=== PATIENT | male | born 1990 | race Caucasian/White ===

== ENCOUNTER 2016-11-18 15:39 | Inpatient (IN) | payer OTHER ==
[2016-11-18] MEDS ORDERED: ONDANSETRON 4 MG/2 ML VIAL IVP ONE (16:01)
[2016-11-18] MEDS ORDERED: NS 1,000 ML IV ONE ×3 (16:01→18:41)
[2016-11-18] MEDS ORDERED: PANTOPRAZOLE SODIUM 80 MG in NS 100 ML IV ONE ×2 (16:02→18:50)
--- NOTE | 2016-11-18 16:02 | CPEKG ---
Heart Rate: 109 RR Interval: 550 P-R Interval: 144 QRSD Interval: 86 QT Interval: 308 QTC Interval: 415 P Augusta: 75 QRS Augusta: 56 T Wave Augusta: 40 EKG Severity - OTHERWISE NORMAL ECG - EKG Impression: SINUS TACHYCARDIA Electronically Signed By: Harish Joshi 18-Nov-2016 16:15:17
[2016-11-18 16:07] LABS: % IMMATURE GRANULYOCYTES 0.7 % (0.0-1.1); ABSOLUTE IMMATURE GRANULOCYTES 0.13 10^3/uL (0.00-0.10); ADD DIFF? NO; ADD MORPH? NO; ADD SCAN? NO; ATYPICAL LYMPHOCYTE FLAG 0 (0-99); FRAGMENT RBC FLAG 0 (0-99); HEMATOCRIT 33.2 % (40.0-51.0); HEMOGLOBIN 11.5 g/dL (13.7-17.5); LEFT SHIFT FLG 0 (0-99); LIPEMIA HEMOLYSIS FLAG 90 (0-99); MEAN CELL HEMOGLOBIN 31.9 pg (27.9-34.1); MEAN CELL HEMOGLOBIN CONCENTR. 34.6 g/dL (32.4-36.7); MEAN PLATELET VOLUME 13.5 fL (8.7-11.7); PLATELET CLUMPS FLAG 0 (0-99); PLATELET COUNT 274 10^3/uL (150-400); RED BLOOD CELL COUNT 3.61 10^6/uL (4.40-6.38); RED CELL DISTRIBUTION WIDTH 12.3 % (11.5-15.2)
[2016-11-18 16:18] LABS: ANION GAP 13 mEq/L (8-16); CALCIUM 9.1 mg/dL (8.5-10.4); CARBON DIOXIDE 21 mEq/l (22-31); CHLORIDE 105 mEq/L (97-110); GLOMERULAR FILTRATION RATE > 60; GLUCOSE 116 mg/dL (70-100); POTASSIUM 4.1 mEq/L (3.5-5.2); SODIUM 139 mEq/L (134-144)
--- NOTE | 2016-11-18 16:23 | EDPHY ---
General Narrative: CHIEF COMPLAINT: Loss of consciousness, vomiting diarrhea, head injury HISTORY OF PRESENT ILLNESS: Patient reports that he has had nausea vomiting diarrhea since yesterday. Several episodes of vomiting last night with 1 episode of diarrhea. Today there was no vomiting but he did have multiple episodes of diarrhea. No bloody stools or emesis. Red vomitus once after a red watermelon gatorade. Patient feels that he has food poisoning. He was having an episode of diarrhea today when he felt very lightheaded and near syncopal. He stood up to go call for help and lost consciousness. He fell back striking his head on what he thinks was his bathtub. He complains of feeling lightheaded, thirsty, and a mild headache. He has no neck pain or chest pain. No back pain. No abdominal pain. No injuries to the arms or legs. He did sustain a laceration which was bleeding moderately. He arrives by EMS and is seen soon after arrival. REVIEW OF SYSTEMS: Ten systems reviewed and are negative unless otherwise noted in the HPI PCP: Jas SPECIALISTS: None PAST MEDICAL HISTORY: Orthopedic injuries, back pain, ankle malignancy, peptic ulcer, GERD PAST SURGICAL HISTORY: Orthopedic surgeries, lipoma excision, ablation of ankle mass SOCIAL HISTORY: Nonsmoker. Occasional alcohol. Occasional marijuana. 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 Left posterior scalp laceration just below the occiput. 4 cm. No involvement of the galea. No foreign body Eyes: Pupils equal and round, no conjunctival pallor or injection. EOMs intact ENT, Mouth: Mucous membranes dry. Airway patent. Neck: Normal inspection, supple, non-tender. No crepitus, step-off or deformity. Painless range of motion all planes. No rigidity or meningismus Respiratory: Lungs are clear to auscultation. No wheezing, rhonchi or crackles Cardiovascular: Tachycardic rate. Regular rhythm. Gastrointestinal: Abdomen is soft and nontender Back: non-tender, no bony abnormalities. No crepitus step-off or deformity Neurological: GCS 15. A&O, nonfocal, strength is symmetric. Skin: Warm and dry, no rash. Scalp laceration as above. Extremities: Nontender, no pedal edema Psychiatric: Mood and affect normal DIFFERENTIAL DIAGNOSES: Including but not limited to syncope, closed head injury, laceration, dehydration, food-borne illness, enteritis, gastroenteritis MDM: 4:02 p.m. Nausea vomiting diarrhea with apparent clinical dehydration. Patient describes what is likely a vasovagal episode. He does have a scalp laceration and closed head injury. I have ordered CT scan of the head. I have ordered laboratory studies, IV fluid, Protonix. Scalp laceration will need staple repair. Tetanus is up-to-date. 4:35 p.m. Patient was taken to CT scan. IV fluid currently infusing. Laboratory studies pending. Thus far he does have leukocytosis and normal creatinine. 4:45 p.m. Notified by radiologist Dr. Johnson. CT scan of the head reveals no acute findings. There is some fluid in the maxillary sinus without any in the adjacent ethmoid sinus. 5:04 p.m. Patient re-evaluated. His heart rate is coming down with the 1st L IV fluid. The laceration has been irrigated. It has now been staple repaired. This was done without complication. Continue IV fluid resuscitation. At this time I have discussed the case with Dr. Joshi. He will assume care the patient. I do not feel that he is stable for discharge at this time. PROCEDURE: Laceration repair Consent: Verbal Location: Left posterior scalp Length of repair: 4 cm Complexity: Complex Layer involvement: Single Anesthesia: Local per 1% lidocaine with epinephrine. 7 mL Irrigation: Extensive Debridement: None Procedure description: Following good anesthesia, the wound was copiously irrigated. Wound bed was explored and there is no foreign body noted. No involvement of the galea. Wound borders were approximated well with good hemostasis. Tolerated well without complication. Suture/Staple material: 9 marci Wound care: Routine as discussed Suture/Staple removal: [address] Joshi Sinus tachycardia. No acute ischemia (Otoniel Gilmore) Medical Decision Makin:40 p.m. I evaluated the patient. He is well-appearing but is still tachycardic and slightly hypotensive. He states that he feels acute going to have another episode of diarrhea. Upon questioning it sounds as though his diarrhea has been dark. He states that his vomit was red but he had just drank in a red Gatorade. I performed a rectal exam which was dark in color and sent to the lab for testing. I will give the patient a 3rd L of fluid and recheck his hematocrit. 6:55 p.m. the patient's Hemoccult is positive. He remains hypotensive and tachycardic. I discussed the case with Dr. White who will admit to the ICU. I have paged gastrology and ordered type and screen. Will place a 2nd IV and start him on a Protonix drip. 7:00 p.m. I discussed the case with Dr. Quiñonez from Gastroenterology. He agrees with Protonix drip and states that as long as the stool remains black he recommends keeping the patient NPO to scope him 1st thing in the morning. He states that if he begins having red blood to call him immediately. 7:20 p.m. the patient's blood pressure is improving. He remains tachycardic and his crit is drop. (Harish Joshi) - Objective Vital Signs: Initial Vital Signs Heart Rate 99 11/18/16 16:02 Blood Pressure 124/102 H 11/18/16 16:02 O2 Delivery Mode Room Air Allergies/Adverse Reactions: No Known Allergies Allergy (Unverified 11/18/16 16:22) Home Medications: Medication Instructions Recorded Calcium Carbonate [Tums 500MG (*)] 1,000 mg PO TIDMEAL PRN 11/18/16 Herbals/Supplements -Info Only 1 ea PO DAILY 11/18/16 Omeprazole [Prilosec 20 mg] 20 mg PO DAILY PRN 11/18/16 Laboratory Results: Laboratory Results 11/19/16 07:25 11/19/16 07:25 11/19/16 11/19/16 07:25 07:25 Hgb 7.8 g/dL L g/dL (13.7-17.5) Hct 23.3 % L % (40.0-51.0) Sodium 138 mEq/L mEq/L (134-144) Potassium 4.6 mEq/L mEq/L (3.5-5.2) Chloride 110 mEq/L mEq/L (97-110) Carbon Dioxide 26 mEq/l mEq/l (22-31) Anion Gap 2 mEq/L L mEq/L (8-16) BUN 25 mg/dL H mg/dL (7-23) Creatinine 0.9 mg/dL mg/dL (0.7-1.3) Estimated GFR > 60 Glucose 88 mg/dL mg/dL (70-100) Calcium 8.4 mg/dL L mg/dL (8.5-10.4) Medications Given: Acetaminophen (Tylenol) 650 mg PO Q4HRS PRN PRN Reason: Pain, Mild/Fever, Can Take PO Stop: 05/17/17 19:28 Last Admin: 11/19/16 16:15 Dose: 650 mg Sodium Chloride (Ns) 1,000 mls @ 125 mls/hr IV CONT KENYATTA Stop: 05/17/17 21:14 Last Admin: 11/19/16 08:05 Dose: 1,000 mls Pantoprazole Sodium 80 mg/ (Sodium Chloride) 100 mls @ 10 mls/hr IV Q10H KENYATTA Stop: 05/18/17 11:29 Last Admin: 11/19/16 11:51 Dose: 100 mls Discontinued Medications Sodium Chloride (Ns) 1,000 mls @ 0 mls/hr IV EDNOW ONE; Wide Open PRN Reason: Protocol Stop: 11/18/16 16:02 Last Admin: 11/18/16 16:25 Dose: 1,000 mls Pantoprazole Sodium 80 mg/ (Sodium Chloride) 100 mls @ 200 mls/hr IV ONCE ONE Stop: 11/18/16 16:31 Last Admin: 11/18/16 17:01 Dose: 100 mls Sodium Chloride (Ns) 1,000 mls @ 0 mls/hr IV ONCE ONE PRN Reason: Wide Open Stop: 11/18/16 17:04 Last Admin: 11/18/16 17:06 Dose: 1,000 mls Sodium Chloride (Ns) 1,000 mls @ 0 mls/hr IV EDNOW ONE; Wide Open PRN Reason: Protocol Stop: 11/18/16 18:42 Last Admin: 11/18/16 18:46 Dose: 1,000 mls Pantoprazole Sodium 80 mg/ (Sodium Chloride) 100 mls @ 10 mls/hr IV Q10H ONE Stop: 11/19/16 04:49 Last Admin: 11/18/16 19:13 Dose: 100 mls Lactated Ringer's (Lr) 1,000 mls @ 0 mls/hr IV ONCE ONE PRN Reason: Per Protocol Stop: 11/19/16 09:12 Last Admin: 11/19/16 12:39 Dose: Not Given Ondansetron HCl (Zofran) 4 mg IVP EDNOW ONE Stop: 11/18/16 16:02 Last Admin: 11/18/16 16:26 Dose: 4 mg Departure - Departure Disposition: [facility] Inpatient Acute Clinical Impression: Dehydration, Upper GI bleed Syncope Qualifiers: Syncope type: vasovagal syncope Qualified Code(s): R55 - Syncope and collapse Scalp laceration Qualifiers: Encounter type: initial encounter Qualified Code(s): S01.01XA - Laceration without foreign body of scalp, initial encounter Closed head injury Qualifiers: Encounter type: initial encounter Qualified Code(s): S09.90XA - Unspecified injury of head, initial encounter Condition: Good
[2016-11-18 16:27] LABS: TROPONIN I < 0.012 ng/mL (0.000-0.034)
[2016-11-18 18:53] LABS: % IMMATURE GRANULYOCYTES 0.8 % (0.0-1.1); ABSOLUTE IMMATURE GRANULOCYTES 0.13 10^3/uL (0.00-0.10); ADD DIFF? NO; ADD MORPH? NO; ADD SCAN? NO; ATYPICAL LYMPHOCYTE FLAG 0 (0-99); FRAGMENT RBC FLAG 0 (0-99); HEMATOCRIT 27.5 % (40.0-51.0); HEMOGLOBIN 9.7 g/dL (13.7-17.5); LEFT SHIFT FLG 0 (0-99); LIPEMIA HEMOLYSIS FLAG 90 (0-99); MEAN CELL HEMOGLOBIN 32.6 pg (27.9-34.1); MEAN CELL HEMOGLOBIN CONCENTR. 35.3 g/dL (32.4-36.7); MEAN CELL VOLUME 92.3 fL (81.5-99.8); MEAN PLATELET VOLUME 13.1 fL (8.7-11.7); PLATELET CLUMPS FLAG 20 (0-99); PLATELET COUNT 197 10^3/uL (150-400); RED BLOOD CELL COUNT 2.98 10^6/uL (4.40-6.38); RED CELL DISTRIBUTION WIDTH 12.3 % (11.5-15.2)
[2016-11-18] MEDS ORDERED: ONDANSETRON 4 MG/2 ML VIAL IVP PRN (19:29)
[2016-11-18] MEDS ORDERED: ONDANSETRON DISINTEGRATING 4 MG TAB PO PRN (19:29)
[2016-11-18 21:57] LABS: ALBUMIN 3.4 g/dL (3.5-5.0); BILIRUBIN,TOTAL 0.5 mg/dL (0.1-1.4); BILIRUBIN-CONJUGATED 0.3 mg/dL (0.0-0.5); BILIRUBIN-UNCONJUGATED 0.2 mg/dL (0.0-1.1); TOTAL PROTEIN 5.9 g/dL (6.3-8.2)
--- NOTE | 2016-11-18 21:59 | GHP ---
[f rep st] HISTORY AND PHYSICAL DATE OF ADMISSION: 11/18/2016 CHIEF COMPLAINT: 1. Melena. 2. Syncope. HISTORY OF PRESENT ILLNESS: A 26-year-old male with history of a duodenal ulcer at age 13, who presented with melena and a syncopal episode. Yesterday, he was at work and was not feeling well about 4 p.m. He felt more tired than normal. His stomach felt queasy and he felt lightheaded. He had 1 episode of emesis at 4 p.m. that was coffee-ground colored. He says he went home and had 1 more episode of bloody emesis at 11 p.m. It was red, but he said he had drank red Gatorade. He felt that he might have food poisoning. Over the last couple days he has eaten his normal grocery store burrito and a roast beef sandwich. No recent travel. Today, he had an episode of diarrhea in which he felt very lightheaded and stood up. He passed out and hit the back of his head on the bathtub. He was able to call 911. His diarrhea was black. Reports taking Advil 200 mg tabs 2-3 times a week for chronic back pain. Has not really taken much in the last week. Has had increased coffee intake. REVIEW OF SYSTEMS: I completed a 10-point Review of Systems, negative except as noted in HPI. PAST MEDICAL HISTORY: 1. Duodenal ulcer at age 13. Had 2 EGDs, repeat was normal. 2. Chronic lower back pain secondary to herniated disk. 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 SOCIAL HISTORY: Lives in [place]. 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 Alcohol, drinks 1 to 2 or 3 beers a couple times a week. Does vape marijuana 3 times a week. No tobacco. FAMILY HISTORY: Paternal grandmother with breast cancer and [place]. Paternal grandfather with cancer and [place]. PHYSICAL EXAMINATION: VITAL SIGNS: Temperature 37.5, blood pressure 139/77, heart rate 104, respirations 18, 94% on room air. His orthostatic with supine 124/102. Blood pressure 84/65 with standing. Heart rate 134 earlier today. GENERAL: Lying in bed, tired appearing. HEENT: Back of head, left occipital with marci. Dry mucous membranes. CV: Tachy but regular. No murmurs, gallops, rubs. LUNGS: Clear to auscultation bilaterally. ABDOMEN: Soft, nontender, nondistended. Positive bowel sounds. : No suprapubic tenderness. MUSCULOSKELETAL: 5/5 upper and lower extremity strength. NEURO: 2 through 12 intact. LABS: The sodium 139, potassium 4.1, chloride 105, carbon dioxide 21, BUN 40, creatinine 1, glucose 116, calcium 9.1. Troponin less than 0.012. Lipase 84. Procalcitonin 62. WBC 17, H and H 11 and 33, platelets 274. Repeat hemoglobin 9.7/27. Head CT personally reviewed by me, normal CT. EKG personally reviewed by me, sinus tachycardia. ASSESSMENT/PLAN: 1. Acute lower gastrointestinal bleed: History of duodenal ulcer in the past. He has been using Advil pretty regularly. We will monitor in step-down unit with q.4 hour H and H. Dr. Quiñonez with GI has been consulted. Plan for scope in the morning unless clinically deteriorates. Currently hemodynamically stable. Start 2 large-bore IVs, intravenous proton pump inhibitor, intravenous fluids. Check gastrointestinal panel. 2. Tachycardia secondary to acute blood loss. 3. Posterior scalp laceration secondary to fall. This has been stapled. 4. Syncope secondary to acute blood loss. Vasovagal. Troponin is negative. 5. Leukocytosis likely secondary to dehydration and stress response given acute gastrointestinal bleed. Will repeat in the morning. GI panel is pending. 6. Diet: Nothing per mouth. 7. Deep vein thrombosis prophylaxis: Sequential compression devices. DISPOSITION: Patient warrants inpatient admission given acute gastrointestinal bleed requiring serial labs, intravenous Protonix, and GI consultation. Critical care time spent: 45 min evaluating patient, reviewing labs and coordinating care for ICU care. /[id number]/MODL MTDD
[2016-11-18 22:24] LABS: HEMATOCRIT 26.7 % (40.0-51.0); HEMOGLOBIN 9.2 g/dL (13.7-17.5)
[2016-11-18] MEDS: ACETAMINOPHEN 325 MG TAB PO PRN (22:59)
[2016-11-19 02:06] LABS: HEMATOCRIT 21.5 % (40.0-51.0); HEMOGLOBIN 7.5 g/dL (13.7-17.5)
[2016-11-19] MEDS: ACETAMINOPHEN 325 MG TAB PO PRN ×3 (06:16→20:20)
[2016-11-19 07:39] LABS: HEMATOCRIT 23.3 % (40.0-51.0); HEMOGLOBIN 7.8 g/dL (13.7-17.5)
[2016-11-19] MEDS: NS 1,000 ML IV SCH ×2 (08:05→18:09)
[2016-11-19 08:18] LABS: ANION GAP 2 mEq/L (8-16); CALCIUM 8.4 mg/dL (8.5-10.4); CARBON DIOXIDE 26 mEq/l (22-31); CHLORIDE 110 mEq/L (97-110); CREATININE 0.9 mg/dL (0.7-1.3); GLOMERULAR FILTRATION RATE > 60; GLUCOSE 88 mg/dL (70-100); POTASSIUM 4.6 mEq/L (3.5-5.2); SODIUM 138 mEq/L (134-144)
[2016-11-19] MEDS ORDERED: LR 1,000 ML IV ONE (09:11)
--- NOTE | 2016-11-19 09:13 | PDANEPAE ---
ANE History of Present Illness 26 yo M w possible UGIB here for EGD ANE Past Medical History - Cardiovascular History Hx Hypertension: No Hx Arrhythmias: No Hx Chest Pain: No - Pulmonary History Hx COPD: No Hx Asthma/Reactive Airway Disease: No Hx Sleep Apnea: No Sleep Apnea Screening Result - Last Documented: Negative - Endocrine History Hx Diabetes: No - GI History GERD: moderate - Chronic Pain History Chronic Pain: Yes (HNP L5-S1, S1-S2) ANE Review of Systems Review of Systems: - Exercise capacity Exercise capacity: >=4 METS ANE Patient History - Allergies Allergies/Adverse Reactions: No Known Allergies Allergy (Unverified 11/18/16 16:22) - Home Medications Home Medications: Calcium Carbonate [Tums 500MG (*)] 1,000 mg PO TIDMEAL PRN 11/18/16 [Last Taken Unknown] Herbals/Supplements -Info Only 1 ea PO DAILY 11/18/16 [Last Taken Unknown] Omeprazole [Prilosec 20 mg] 20 mg PO DAILY PRN 11/18/16 [Last Taken Unknown] - NPO status NPO Status: no food or drink >8 hours NPO Since - Liquids (Date): 11/18/16 NPO Since - Liquids (Time): 20:00 NPO Since - Solids (Date): 11/18/16 NPO Since - Solids (Time): 14:00 - Anes Hx Anes Hx: no prior problems - Smoking Hx Smoking Status: Never smoked - Alcohol Use Alcohol Use: Occasionally - Family Anes Hx Family Anes Hx: none ANE Labs/Vital Signs - Labs Result Diagrams: 11/19/16 07:25 11/19/16 07:25 - Vital Signs Blood Pressure: 127/68 Heart Rate: 90 Respiratory Rate: 18 O2 Sat (%): 98 Height: 177.8 cm Weight: 109.4 kg ANE Physical Exam - Airway Neck exam: FROM Mallampati Score: Class 2 Mouth exam: normal dental/mouth exam - Pulmonary Pulmonary: no respiratory distress, clear to auscultation - Cardiovascular Cardiovascular: regular rate and rhythym, no murmur, rub, or gallop - ASA Status ASA Status: II
[2016-11-19] MEDS ORDERED: NS 500 ML IV SCH (09:15)
[2016-11-19] MEDS ORDERED: INDOMETHACIN 50 MG SUPP PR PRN (09:15)
[2016-11-19] MEDS ORDERED: PROPOFOL/EMULSION 500 MG/50 ML BOTTLE IV ONE ×2 (09:18→09:44)
[2016-11-19] MEDS ORDERED: ONDANSETRON 4 MG/2 ML VIAL IVP PRN (09:22)
[2016-11-19] MEDS ORDERED: NALOXONE HCL 0.4 MG/ML INJ IVP PRN (09:22)
[2016-11-19] MEDS ORDERED: ACETAMINOPHEN 500 MG TAB PO PRN (09:22)
[2016-11-19] MEDS ORDERED: EPINEPHrine 1 MG/10 ML SYR IVP ONE (09:36)
--- NOTE | 2016-11-19 10:14 | GIREPORT ---
[facility] Surgical Services - Endoscopy Department Patient Name: Eric Ruiz Procedure Date: 11/19/2016 9:15 AM Patient Type: Inpatient Attending MD/ ER Physician: Leonel Quiñonez MD Procedure: Upper GI endoscopy Indications: Hematemesis Patient Profile: 26 year old male presents for evaluation of a UGI bleed. Providers: Leonel Quiñonez MD Medicines: Monitored Anesthesia Care Complications: No immediate complications. Estimated blood loss: Minimal. Description of Procedure: After obtaining informed consent, the endoscope was passed under direct vision. Throughout the procedure, the patient's blood pressure, pulse, and oxygen saturations were monitored continuous ly. The Endoscope was introduced through the mouth, and advanced to the second part of duodenum. The upper GI endoscopy was accomplished without difficulty. The patient tolerated the procedure well . Findings: The examined esophagus was normal. A small hiatal hernia was present. Just distal to the duodenal bulb, a clot was seen with minimal ulceration. Gold probe was applie d with significant oozing noted. A Resolution clip was placed with complete cessation of bleeding. Estimated Blood Loss: Estimated blood loss was minimal. Post Op Diagnosis: - Normal esophagus. - Small hiatal hernia. - UGI- suspect gastroduodenal artery bleed. S/p GoldProbe and clip with no bleeding noted. Recommendation: - Return patient to [facility] for [facility] care. - Use a proton pump inhibitor IV infusion. - Gastroduodenal artery bleed? High risk of rebleed. Continue PPI infus ion. Would keep NPO. Monitor H/H - IR notified and if any rebleeding, would consider formal consultation . - Will check blood work for H. pylori. - Thank you for allowing me to participate in the care of your patient. Attending Participation: I personally performed the entire procedure. Leonel Quiñonez MD Leonel Quiñonez MD 11/19/2016 10:14:12 AM Number of Addenda: 0 Note Initiated On: 11/19/2016 9:15 AM [email or web address]
--- NOTE | 2016-11-19 10:48 | POSTANESTH ---
Post Anesthetic Evaluation Cardiovascular Status: Normal, Stable, Similar to Pre-Op Cond Respiratory Status: Normal, Stable, Similar to Pre-op Cond. Level of Consciousness/Mental Status: Can Participate in Eval, Alert and Oriented Pain Control: Adequate, Prn Tx Ordered Nausea/Vomiting Control: Adequate, Prn Tx Ordered Complications Possibly Related to Anesthesia: None Noted
[2016-11-19] MEDS: PANTOPRAZOLE SODIUM 80 MG in NS 100 ML IV SCH ×2 (11:51→21:37)
--- NOTE | 2016-11-19 11:57 | HOSPPROG ---
Hospitalist Progress Note Assessment/Plan: GIB - EGD this am revealed likely gastroduodenal arterial bleed s/p gold probe and clip placement. High risk for rebleeding. Hgb 11.5 --> 7.8. Hemodynamically stable. -cont to trend H&H, transfuse if continues to drop, currently stable -PPI drip -GI aware -IR for consideration of embolization if rebleeding occurs Syncope - secondary to above Scalp injury due to syncope, s/p marci in ED - CT head neg Full code DVT PPXL - pharm c/i due to GIB. SCD's Dispo - cont ICU / inpt Subjective: Pt feels ok. Not much abdominal pain, N/V. No more melena since EGD this am. Denies CP, SOB or dizziness. No fevers. Objective: Vital Signs Temp Pulse Resp BP Pulse Ox 36.8 C 90 18 129/67 H 97 11/19/16 11:01 11/19/16 09:13 11/19/16 09:13 11/19/16 11:00 11/19/16 11:00 Laboratory Results 11/19/16 07:25 11/19/16 07:25 11/18/16 11/19/16 11/20/16 05:59 05:59 05:59 Intake Total 3985.9 Output Total 800 Balance 3985.9 -800 - Physical Exam Constitutional: no apparent distress Eyes: PERRL Ears, Nose, Mouth, Throat: moist mucous membranes Cardiovascular: regular rate and rhythym Respiratory: no respiratory distress, clear to auscultation Gastrointestinal: normoactive bowel sounds, other (soft, nd, minimal TTP, no r/r /g, +BS) Skin: warm Musculoskeletal: full muscle strength Neurologic: AAOx3 Psychiatric: interacting appropriately ICD10 Worksheet Patient Problems: Problems Problem Status Onset Closed head injury Acute Dehydration Acute Scalp laceration Acute Syncope Acute Upper GI bleed Acute
[2016-11-19 12:52] LABS: HEMATOCRIT 21.4 % (40.0-51.0); HEMOGLOBIN 7.4 g/dL (13.7-17.5)
--- NOTE | 2016-11-19 14:28 | PDMN ---
Medical Necessity Medical necessity: Patient meets INPT criteria per physician note and MCG M-180 GI Bleeding, Upper (high-risk endoscopic features: suspected gastroduodenal arterial bleeding per endoscopy w/clip placement; high risk for rebleed and need to follow serial H&H for poss transfusion needs (11.5/33.2 to 7.4/21.4); LOS will be > 2 midnights for IV hydration/Protonix.)
--- NOTE | 2016-11-19 16:01 | ASMTCMCOM ---
CM Note CM Note Notes: Pt was admitted with GI bleed, hypotension. S/p EGD. Hx duodenal ulcer. He is a [employer] student and has health ins through [employer] - sent copy of pt's ins info to Admissions, copy in chart. Anticipate d/c with no CM needs however will continue to follow for any change in needs. Date Signed: 11/19/2016 04:00 PM Electronically Signed By:AIXA Salas
--- NOTE | 2016-11-19 16:53 | GCON ---
[f rep st] CONSULTATION PULMONARY/CRITICAL CARE CONSULTATION DATE OF CONSULTATION: 11/19/2016 REFERRING PHYSICIAN: Edita White MD REASON FOR CONSULTATION: Evaluation and management of anemia. HISTORY OF PRESENT ILLNESS: The patient is a 26-year-old male with a history of duodenal ulcer at ag e 13, who was admitted to the hospital yesterday with melena and syncope. He has taken omeprazole in termittently for abdominal discomfort, but has not been taking it recently because he had not been coates ving any. About 4 p.m. on November 17, he began not feeling well, with increased tiredness and some nausea with lightheadedness. He had an episode of emesis, it was coffee-grounds, and then had some more coffee-ground/red emesis following that, followed by an episode of diarrhea and lightheadedness yesterday that resulted in syncope. He was brought to the emergency department, where he had some bl ack diarrhea. He was seen by Gastroenterology, who performed an endoscopy this morning and found a d uodenal ulcer with clot. Clip was placed with complete cessation of the bleeding. He was transferre d back to the ICU. He reports that he had been doing well throughout the day until just a few minute s ago, when he began to feel a little bit lightheaded. He has had no emesis or bowel movements. PAST MEDICAL HISTORY: 1. Duodenal ulcer at age 13. 2. Chronic lower back pain. MEDICATIONS: At the time of admission include omeprazole p.r.n. and Tums p.r.n. ALLERGIES: None. SOCIAL HISTORY: The patient lives in [place]. 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 He drinks 1-2 beers a couple times a week. He does not smoke. FAMILY HISTORY: Unremarkable. REVIEW OF SYSTEMS: A 10-point review of systems adds nothing to the history of present illness. PHYSICAL EXAMINATION: GENERAL: The patient is awake, alert, in no acute distress. VITAL SIGNS: Bl ood pressure is 127/60 with a heart rate of 96. He is afebrile. Oxygen saturations are 98% on room air. HEENT: Normocephalic and atraumatic. No icterus. NECK: No JVD. Trachea is midline. CHEST: Clear to auscultation. CARDIAC: Regular rate and rhythm without murmur. ABDOMEN: Soft, nontende r. Bowel sounds are present. EXTREMITIES: No clubbing, cyanosis or edema. NEURO: The patient is awake, alert and oriented. There are no gross motor or sensory deficits. LABORATORY: Chemistry group is remarkable only for a BUN of 25. A prolactin of 62. Hemoglobin is 7 .4, down from 11.5 at admission. ASSESSMENT: 1. Anemia. This is due to a gastrointestinal bleed. His hemoglobin has been trending down, but his vital signs are stable. He has no evidence of ongoing significant active bleeding. However, he nixon arently Gastroenterology feels that he is at some risk for rebleeding, in which case he would probabl y go to Interventional Radiology for an attempt to stop the bleeding. 2. Duodenal ulcer. This is likely the cause of the patient's bleeding. He has had a clip placed an d is on a proton pump inhibitor. RECOMMENDATIONS: 1. Continue q. 6-hour hemoglobin checks. 2. Start a Protonix drip. 3. Advance diet as per GI. /[id number]/MODL
[2016-11-19 19:07] LABS: HEMATOCRIT 20.5 % (40.0-51.0)
[2016-11-19 19:08] LABS: HEMOGLOBIN 6.9 g/dL (13.7-17.5)
[2016-11-19 20:14] LABS: COLOR YELLOW; LEUKOCYTE ESTERASE,URINE NEGATIVE (NEGATIVE); NITRITE,URINE NEGATIVE (NEGATIVE)
--- NOTE | 2016-11-19 23:59 | GCON ---
[f rep st] CONSULTATION DATE OF CONSULTATION: 11/19/2016 CONSULTING PHYSICIAN: Dr. Janay Whtie REASON FOR CONSULTATION: Hematemesis. CHIEF COMPLAINT: Blood in stools. HISTORY OF PRESENT ILLNESS: Eric is a 26-year-old male with a history of a remote duodenal ulcer who presents to [facility] with complaints of hematemesis as well as melanotic stools. The patient was doing well until yesterday, when he suddenly started to feel lightheaded and developed a queasy feeling in his stomach. He had an episode of coffee-ground emesis in the afternoon, and another one later at night. He also started to have melanotic bowel movements. He denies any significant abdominal pain, but does have some complaints of nausea. He denies any recent NSAID use. He does take an occasional Advil for some back pain, but recently has not been taking this. He denies any exacerbating or alleviating factors to his symptoms. He denies any chest pain or shortness of breath. . On arrival at [facility], he was noted to have a hemoglobin of 11.5, which has decreased to 7.8. He was Hemoccult positive. I am being asked by Dr. White to see Eric in consultation regarding his GI bleed. PAST MEDICAL HISTORY: 1. Duodenal ulcer. 2. Chronic back pain. PAST SURGICAL HISTORY: 1. Hernia repair. 2. Lipoma. 3. 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 MEDICATIONS: Advil. ALLERGIES: NKDA. SOCIAL HISTORY: Lives in [place]. Graduate in [employer]. Social alcohol. Marijuana a few times a week. No significant tobacco use. FAMILY HISTORY: Coronary artery disease. Breast cancer. REVIEW OF SYSTEMS: A 12-point comprehensive review of systems was asked. Pertinent positives and negatives per HPI. PHYSICAL EXAMINATION: VITAL SIGNS: Blood pressure 127/68, pulse 90, respirations 16, temperature 37.5. GENERAL: Awake, alert, oriented x3. No distress. HEENT: Anicteric, moist mucosa. NECK: No JVD. CARDIOVASCULAR: Regular rate and rhythm, positive S1, S2. No murmurs or gallops appreciated. LUNGS: Clear to auscultation bilaterally. No wheezes, rales or rhonchi. ABDOMEN: Soft, nontender, nondistended. Positive bowel sounds. No guarding or rebound. EXTREMITIES: No edema. NEUROLOGIC: Cranial nerves 2 through 12 grossly intact. PSYCH: Normal affect. LABORATORY DATA: Blood work: Hemoglobin 7.8, hematocrit 23.3, WBC 17.28, platelets 197. Total bilirubin 0.5, AST 22, ALT 24. CT scan of the head negative for epidural or subdural hematoma. ASSESSMENT AND PLAN: 1. Upper gastrointestinal bleed- does have a history of a prior duodenal ulcer. Minimal non-steroidal anti-inflammatory drug use. At this time, I recommend to proceed with upper endoscopy to delineate the cause of his symptoms. The risks, benefits, and alternatives of the procedure were discussed in detail to the patient. The risk of infection, bleeding, perforation, and sedation were discussed. All questions answered and informed consent was obtained. Thank you very much for this consultation. /[id number]/MODL MTDD
[2016-11-20 01:14] LABS: HEMATOCRIT 24.3 % (40.0-51.0); HEMOGLOBIN 8.5 g/dL (13.7-17.5)
[2016-11-20] MEDS: PANTOPRAZOLE SODIUM 80 MG in NS 100 ML IV SCH ×2 (06:11→16:24)
[2016-11-20 06:13] LABS: % IMMATURE GRANULYOCYTES 0.7 % (0.0-1.1); ABSOLUTE IMMATURE GRANULOCYTES 0.06 10^3/uL (0.00-0.10); ADD DIFF? NO; ADD MORPH? NO; ADD SCAN? NO; ATYPICAL LYMPHOCYTE FLAG 0 (0-99); FRAGMENT RBC FLAG 0 (0-99); HEMATOCRIT 24.5 % (40.0-51.0); HEMOGLOBIN 8.4 g/dL (13.7-17.5); LEFT SHIFT FLG 0 (0-99); LIPEMIA HEMOLYSIS FLAG 90 (0-99); MEAN CELL HEMOGLOBIN 30.4 pg (27.9-34.1); MEAN CELL HEMOGLOBIN CONCENTR. 34.3 g/dL (32.4-36.7); MEAN CELL VOLUME 88.8 fL (81.5-99.8); MEAN PLATELET VOLUME 12.7 fL (8.7-11.7); PLATELET CLUMPS FLAG 10 (0-99); PLATELET COUNT 127 10^3/uL (150-400); RED BLOOD CELL COUNT 2.76 10^6/uL (4.40-6.38); RED CELL DISTRIBUTION WIDTH 14.7 % (11.5-15.2)
[2016-11-20] MEDS: ACETAMINOPHEN 325 MG TAB PO PRN ×2 (09:08→20:23)
[2016-11-20] MEDS: NS 1,000 ML IV SCH ×2 (09:34→20:00)
[2016-11-20 12:36] LABS: HEMATOCRIT 24.1 % (40.0-51.0); HEMOGLOBIN 8.4 g/dL (13.7-17.5)
--- NOTE | 2016-11-20 13:03 | SOAPPROG ---
SOAP Progress Note Assessment/Plan: Assessment: 1. GI BLEED - from duodenal vessel - Dieulafoy vs GDA branch - EGD on 11/19 with clip and cautery - received 2 U PRBCs overnight - H/H stable this AM Plan: 1. UGI BLEED - monitor - follow H/H - if has clinical evidence of repeat bleeding, would favor IR guided embolization (clip to help localize) - PPI QD x 12 weeks - will sign off, call with questions - clear liquids today, advance as tolerated, if H/H remains stable today - 25minutes at bedside discussing careplan and potential outcomes Subjective: CC: f/u post-hemorrhagic anemia S: no chest pain no nausea no vomiting no fever no chills no sob Objective: Vital Signs Temp Pulse Resp BP Pulse Ox 37.0 C 84 19 126/74 H 97 11/20/16 11:50 11/20/16 11:50 11/20/16 11:50 11/20/16 11:50 11/20/16 07:39 Laboratory Results 11/20/16 12:20 11/19/16 11/20/16 11/21/16 05:59 05:59 05:59 Intake Total 3440 Output Total 1300 Balance 2140 Laboratory Tests 11/19/16 11/20/16 11/20/16 18:35 01:00 05:50 Hgb 6.9 L 8.5 L 8.4 L Hct 20.5 L 24.3 L 24.5 L 11/20/16 12:20 Hgb 8.4 L Hct 24.1 L ICD10 Worksheet Patient Problems: Problems Problem Status Onset Closed head injury Acute Dehydration Acute Scalp laceration Acute Syncope Acute Upper GI bleed Acute
[2016-11-20] MEDS ORDERED: FLU VACC QS 2017-18 (3YR+)/PF 0.5 ML SYR (FLUARIX QUAD) IM ONE (15:21)
--- NOTE | 2016-11-20 16:28 | HOSPPROG ---
Hospitalist Progress Note Assessment/Plan: GIB - EGD this am revealed likely gastroduodenal arterial bleed vs dieulafoy with minimal ulceration, s/p cautery and clip placement. High risk for rebleeding. Hgb 11.5 --> 6.7, s/p 2 units prbcs, hgb now stable ~8.4. Hemodynamically stable. -cont to trend H&H, transfuse if <7 -cont PPI drip, change to po tomorrow, plan for 12 wks therapy -GI following, appreciate assistance -Call IR for embolization if rebleeding occurs Syncope - secondary to above Scalp injury due to syncope, s/p marci in ED - CT head neg Full code DVT PPXL - pharm c/i due to GIB. SCD's Dispo - cont ICU / inpt Subjective: Pt feels ok. No abdominal pain, N/V. No BM's since endoscopy. No fevers. Ambulating. Tolerating clears. Objective: Vital Signs Temp Pulse Resp BP Pulse Ox 37.0 C 97 16 126/60 H 100 11/20/16 16:00 11/20/16 16:00 11/20/16 16:00 11/20/16 16:00 11/20/16 16:00 Laboratory Results 11/20/16 12:20 11/19/16 11/20/16 11/21/16 05:59 05:59 05:59 Intake Total 3440 Output Total 1300 Balance 2140 - Physical Exam Constitutional: no apparent distress Eyes: PERRL Ears, Nose, Mouth, Throat: moist mucous membranes Cardiovascular: regular rate and rhythym Respiratory: no respiratory distress, clear to auscultation Gastrointestinal: normoactive bowel sounds, soft, non-tender abdomen Skin: normal color Musculoskeletal: full muscle strength Neurologic: AAOx3 Psychiatric: interacting appropriately ICD10 Worksheet Patient Problems: Problems Problem Status Onset Closed head injury Acute Dehydration Acute Scalp laceration Acute Syncope Acute Upper GI bleed Acute
[2016-11-20 19:00] LABS: HEMATOCRIT 24.9 % (40.0-51.0); HEMOGLOBIN 8.8 g/dL (13.7-17.5)
[2016-11-21 01:03] LABS: HEMATOCRIT 21.8 % (40.0-51.0); HEMOGLOBIN 7.6 g/dL (13.7-17.5)
[2016-11-21] MEDS: PANTOPRAZOLE SODIUM 80 MG in NS 100 ML IV SCH (02:32)
[2016-11-21] MEDS: NS 1,000 ML IV SCH (02:33)
[2016-11-21] MEDS: ACETAMINOPHEN 325 MG TAB PO PRN ×2 (05:28→12:11)
[2016-11-21 05:51] LABS: HEMATOCRIT 23.2 % (40.0-51.0)
[2016-11-21 07:48] VITALS: TEMP 98.5
[2016-11-21] MEDS ORDERED: PANTOPRAZOLE SODIUM 40 MG TAB PO SCH (10:15)
[2016-11-21 10:34] LABS: HEMATOCRIT 23.5 % (40.0-51.0); HEMOGLOBIN 8.3 g/dL (13.7-17.5)
[2016-11-21 12:19] VITALS: BP 139/63; PULSE 97; RESP 15; O2SAT 100
--- NOTE | 2016-11-22 06:31 | GDS ---
[f rep st] DISCHARGE SUMMARY DISCHARGE DIAGNOSES: 1. Upper gastrointestinal bleed secondary to gastroduodenal arterial bleeding source in the setting of minimal ulceration. 2. History of peptic ulcer disease. 3. Syncope secondary to above. 4. Scalp laceration requiring marci secondary to syncope. CONSULTANTS: 1. Dr. Leonel Quiñonez, Gastroenterology. 2. Dr. Ric Oconnell, Pulmonology. IMAGING STUDIES/PROCEDURES: 1. Head CT November 18, 2016 was negative for acute intracranial bleed. Right maxillary sinusitis wa s noted. 2. Upper endoscopy November 19, 2016, performed by Dr. Leonel Quiñonez revealed a blood clot just distal to the duodenal bulb with minimal ulceration, which was treated with cautery and clips. HISTORY OF DETAILS: Please see the history and physical dated November 18, 2016. In brief, the patie nt is a 26-year-old male with a history of duodenal ulcer at age 13, who presents to the emergency de partment with a syncopal episode following history of melenic stool. He was admitted to the hospital for further management. HOSPITAL COURSE: Patient was admitted to the intensive care unit. He was treated with IV proton pum p inhibitor and kept n.p.o. for endoscopy, which was performed the following morning, with results ab ove. It was thought his bleed was likely secondary to gastroduodenal arterial bleed versus a Dieulaf oy lesion. His hemoglobin trended down from 11.5 to a elizabeth of 6.9. At this point, he was given 2 u nits of packed red blood cells. His hemoglobin remained stable around 8.5 for the following 36 hours with no further evidence of bright red blood or melenic stool. He remained hemodynamically stable, had no hypotension throughout his hospital course. His IV proton pump inhibitor drip was transitione d to oral Protonix 40 mg twice daily. DISPOSITION: Patient is discharged home in stable condition. FOLLOWUP: 1. [facility]. 2. Dr. Leonel Quiñonez, Gastroenterology. 3. Patient is instructed to return to the emergency department in 10 days for staple removal. He is instructed to return to the emergency department for any further signs of bleeding, syncope, or near syncope. DISCHARGE MEDICATIONS: Protonix 40 mg p.o. b.i.d.; #60, no refills. /[id number]/MODL
== END 2016-11-21 12:30 | disposition home or self-care (01) | DRG 378 ==
LOC: F2N 21:13 → OBSVTOIN 11-19 09:14 → F2N 11-19 17:55
PROVIDERS: ADMIT Internal Medicine; ATTEND Hospitalist
PROC: 30233N1 Transfusion of Nonautologous Red Blood Cells into Peripheral Vein, Percutaneous Approach (ICD-10-PCS; 2016-11-19)
PROC: 0HQ0XZZ Repair Scalp Skin, External Approach (ICD-10-PCS; 2016-11-19)
PROC: 0W3P8ZZ Control Bleeding in Gastrointestinal Tract, Via Natural or Artificial Opening Endoscopic (ICD-10-PCS; principal; 2016-11-19 09:45)
DX: K26.0 Acute duodenal ulcer with hemorrhage (principal); D62 Acute posthemorrhagic anemia; S01.01XA Laceration without foreign body of scalp, initial encounter; R55 Syncope and collapse; K92.1 Melena; E86.0 Dehydration; R00.0 Tachycardia, unspecified; D72.829 Elevated white blood cell count, unspecified; J32.0 Chronic maxillary sinusitis; W01.198A Fall on same level from slipping, tripping and stumbling with subsequent striking against other object, initial encounter; Y92.002 Bathroom of unspecified non-institutional (private) residence as the place of occurrence of the external cause; M54.5 Low back pain; F12.90 Cannabis use, unspecified, uncomplicated; Z87.11 Personal history of peptic ulcer disease; Z82.49 Family history of ischemic heart disease and other diseases of the circulatory system; Z23 Encounter for immunization
CPT/HCPCS: 92507-GN; 92523-GN; 96365; 96374; G0008; G0378; J2405; J2704; P9016